=== PATIENT | female | born 1945 | race Caucasian/White ===

== ENCOUNTER 2017-05-28 22:00 | Emergency (ER) | payer MEDICARE, OTHER ==
[2017-05-28 22:11] VITALS: BP 165/69
--- NOTE | 2017-05-28 22:26 | ERNOTE ---
Upper Extremity HPI - Narrative Date of Service: 05/28/17 - General Extremities Pain Location: shoulder: right Time Seen by Provider: 05/28/17 22:18 Source: patient - Immun/Allergies/Home Medications Immunizations: IMMUNIZATION HX Immunizations Up to Date Yes History of Influenza Vaccine No Hx Pneumococcal Vaccination No This is a 72-year-old female who took a mechanical fall at home complaining of pain to the right shoulder area. Also complaining of bit of pain to the left hand and the right forearm below range of motion except for it is limited due to pain in the shoulder. No other complaints. Did not lose consciousness. She says her head slapped gently against the floor. She is not on any anticoagulants Allergies/Adverse Reactions: Allergies Allergy/AdvReac Type Severity Reaction Status Date / Time amoxicillin [Amoxicillin] Allergy Unverified 05/28/17 22:07 Home Medications: HOME MEDICATIONS Glipizide [Glipizide Xl] 10 mg PO BID 09/13/12 [Last Taken 09/24/12 17:00] HYDROcodone/ACETAMINOPHEN [[place] 5-325] 1 each PO Q6H PRN 09/13/12 [Last Taken 09/24/12 21:00] Loratadine [Claritin] 10 mg PO DAILY 09/13/12 [Last Taken 09/25/12 06:47] Enoxaparin Sodium [Lovenox] 40 mg SC Q24H #0 disp.syrin 09/29/12 [Last Taken Unknown] Mag Hydrox/Aluminum Hyd/Simeth [Maalox Plus Suspension] 30 ml PO Q6H PRN #0 udc 09/29/12 [Last Taken Unknown] Magnesium Hydroxide [Milk Of Magnesia] 30 ml PO DAILY PRN #0 udc 09/29/12 [Last Taken Unknown] Meloxicam [Mobic] 7.5 mg PO BID #0 tablet 09/29/12 [Last Taken Unknown] Sennosides/Docusate Sodium [Senokot-S] 2 tab PO HS #0 tablet 09/29/12 [Last Taken Unknown] oxyCODONE HCL/ACETAMINOPHEN [Percocet 5 MG/325 MG] 1 tab PO Q4H PRN #30 tab [Last Taken Unknown] - History of Present Illness Narrative: This is a 72-year-old right-hand dominant female who comes to the emergency department complaining of right shoulder pain. The patient says that she was walking in her house when she fell down. This was a mechanical fall. She landed primarily on the right shoulder. She did get her hands out in front of her at first. She is complaining of pain in the right shoulder and left forearm right hand. She is able to walk and move her arm in all different directions except at the shoulder where different directions can cause pain Review of Systems - Review of Systems Constitutional: Present: no symptoms reported EYE: Present: no symptoms reported ENT: Present: no symptoms reported Respiratory: Present: no symptoms reported Cardiology: Present: no symptoms reported Gastrointestinal/Abdominal: Present: no symptoms reported Genitourinary: Present: no symptoms reported Musculoskeletal: Present: other - pain to the left forearm, pain to the right wrist, pain to the right shoulder Neurological: Present: no symptoms reported Endocrine: Present: no symptoms reported Hematologic/Lymphatic: Present: no symptoms reported Psych: Present: no symptoms reported All Other Systems: All systems neg except as marked - Patient's Past Medical History Patient History - Medical: Diabetes Type 2 Patient History - Cardiac/Respiratory: No pertinent hx Patient History - Cancer: No Hx of Cancer Patient History - Surgical Procedures: Total Hip Replacement Patient History - Other: None - Family History Mother Family History - Medical: , No pertinent hx Father Family History - Medical: , No pertinent hx - Social History Living Situations: home Abuse History: No History of abuse Psych History: No pertinent hx Smoking Status: Never smoker - Immunizations Immunizations Up to Date: Yes Hx Pneumococcal Vaccination: No History of Influenza Vaccine: No Physical Exam - Physical Exam General Appearance: Present: wd/wn, alert, no apparent distress Head Exam: Present: normal inspection, no evidence of injury Ears, Nose, Throat: Present: normal ENT inspection, normal pharynx Neck: Present: normal inspection, nontender Respiratory: Present: no respiratory distress, normal breath sounds, lungs clear Cardiovascular/Chest: Present: regular rate, rhythm, no murmur Gastrointestinal/Abdominal: Present: normal bowel sounds, nondistended Back Exam: Present: normal inspection, normal range of motion Extremity Exam: Present: normal inspection, other - patient has full distal range of motion. The patient has some discomfort when externally rotating the right shoulder. Abduction is also somewhat uncomfortable. No distal neurovascular problems pulse is good. No other complaints. Absent: non-tender , normal range of motion Neurological Exam: Present: alert, oriented, normal mood/affect Skin Exam: Present: normal color, warm/dry Lymphatic Exam: Present: no adenopathy ED Progress - Vital Signs Patient's Vital Signs:: I have reviewed the patient's vital signs. Vital Signs: Vital Signs 05/28/17 22:07 Temperature 36.9 C Pulse Rate 84 Respiratory 16 Rate Blood Pressure 165/69 O2 Sat by Pulse 99 Oximetry - X-Ray X-Ray #1 X-Ray: shoulder Interpretation: Interp. by me X-ray Comments: Mild degenerative changes no fracture - Progress/Reassessment Chief Complaint: Shoulder Injury/Pain Plan - Plan Plan: The patient has no fractures. She would like a sling. She will follow up orthopedist. Departure Clinical Impression: Shoulder pain, acute Qualifiers: Laterality: right Qualified Code(s): M25.511 - Pain in right shoulder - Departure Disposition: Home self-care Condition: Good Instructions: Shoulder Pain, [id number] Additional Instructions: As we discussed her physical exam does not lead me to believe you have a broken bone. Nevertheless we have elected to perform a plain x-ray of the right shoulder. I do not see anything abnormal on this x-ray. I suspect that you either strained or pulled ligament or muscle with any rotator cuff. Unfortunately this is not something I can definitively diagnose here in the ER. Therefore I want you to call your orthopedic doctor and set up a follow-up appointment as soon as possible. Certainly if he develop any new concerning symptoms she should return to the ER. Take ibuprofen, 2 of the 200 mg tablets, so 400 mg, every 6 hours to help with pain and inflammation If you aren't having anything new or concerning come back to the ER immediately. Otherwise follow-up with her family doctor. Call for appointment. Referrals: Ayla Vides MD [Primary Care Provider] -
== END 2017-05-28 23:18 | disposition home or self-care (01) ==
LOC: ER 22:00
DX: M25.511 Pain in right shoulder (principal); E11.9 Type 2 diabetes mellitus without complications; W01.0XXA Fall on same level from slipping, tripping and stumbling without subsequent striking against object, initial encounter; Y93.9 Activity, unspecified; Y92.009 Unspecified place in unspecified non-institutional (private) residence as the place of occurrence of the external cause